=== PATIENT | male | born 1955 | race Asian ===

== ENCOUNTER 2019-11-08 15:47 | Emergency (ER) | payer OTHER ==
[~2019-11-08] VITALS: Ht 175.3 cm; Wt 72.6 kg
--- NOTE | 2019-11-08 16:00 | NUR ---
syncope s/p playing golf 30 mins ago. 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 Patient denies any dizziness or headache. Assisted to room ER 11
--- NOTE | 2019-11-08 16:30 | NUR ---
patient refused a head ct, explained risks and benefits, still refused. Dr. Mike made aware.
[2019-11-08] MEDS: IV NS 0.9% 1,000 ML BAG IV ONE (16:32)
[2019-11-08 16:51] LABS: BASOPHILS % (AUTO) 0.3 % (0.0-2.0); CALCIUM, SERUM 9.8 mg/dL (8.5-10.1); CREATININE 2.1 mg/dL (0.6-1.3); EOSINOPHILS % (AUTO) 0.9 % (0.0-6.0); HEMATOCRIT 39 % (39-51); LYMPHOCYTES % (AUTO) 27.1 % (20.0-44.0); MAGNESIUM 2.1 mg/dL (1.8-2.4); MEAN CORPUSCULAR HGB CONC 33 g/dl (31.0-36.0); MEAN CORPUSCULAR VOLUME 92 fL (80-96); MONOCYTES # (AUTO) 0.5 /CMM (0.1-1.30); MONOCYTES % (AUTO) 6.3 % (2.0-12.0); NEUTROPHILS # (AUTO) 4.9 /CMM (1.8-8.9); NEUTROPHILS % (AUTO) 65.4 % (43.0-81.0); PLATELET COUNT (AUTO) 195 /CMM (150-450); RED BLOOD CELL COUNT(AUTO) 4.29 MIL/uL (4.5-6.0); WHITE BLOOD COUNT (AUTO) 7.6 K/uL (4.3-11.0)
--- NOTE | 2019-11-08 17:30 | NUR ---
VITALS HAS IMPROVED. PT STS HE FEELS BETTER.
[2019-11-08] MEDS ORDERED: RAMI10CA69 PO (17:35)
[2019-11-08] MEDS ORDERED: ATOR10TA PO (17:35)
--- NOTE | 2019-11-08 17:57 | NUR ---
PATIENT PROVIDED A SANDWICH AND GATORADE.
--- NOTE | 2019-11-08 19:10 | NUR ---
Patient a/ox4, breathing even and unlabored, no sob noted, blood pressure has improved. IV removed. Catheter intact and site benign. Pressure and 4x4 applied to site. No bleeding noted.Patient discharged to home in stable condition. Written and verbal after care instructions given. Patient verbalizes understanding of instruction.
[2019-11-08 19:11] VITALS: BP 122/73
== END 2019-11-08 19:12 | disposition home or self-care (01) ==
LOC: ER 15:47
DX: S00.83XA Contusion of other part of head, initial encounter (principal); R55 Syncope and collapse; N28.9 Disorder of kidney and ureter, unspecified; D64.9 Anemia, unspecified; I10 Essential (primary) hypertension; E78.5 Hyperlipidemia, unspecified; Z98.890 Other specified postprocedural states; Z88.0 Allergy status to penicillin; Z79.899 Other long term (current) drug therapy; W19.XXXA Unspecified fall, initial encounter; Y93.89 Activity, other specified; Y92.511 Restaurant or cafe as the place of occurrence of the external cause; Y99.8 Other external cause status
CPT/HCPCS: 36415; 71045; 80048; 82550; 82962; 83735; 84484 ×2; 85025; 85378; 93005 ×2; 96360; 99285; J7030